=== PATIENT | female | born 1985 | race Caucasian/White ===

== ENCOUNTER 2017-10-08 01:03 | Inpatient (IN) | payer BC ==
[~2017-10-08] VITALS: Ht 170.2 cm; Wt 118.0 kg
[2017-10-08] VITALS (16 sets, daily range): BP systolic 121–143; BP diastolic 73–94
[~2017-10-08 01:03] MED LIST: CITA20TA19 PO; LISI-644 PO
[2017-10-08] MEDS ORDERED: ondansetron/PF 4mg/2ml inj IV ONE (01:40)
[2017-10-08] MEDS ORDERED: normal saline 1000ML IV soln IVB ONE (01:40)
[2017-10-08] MEDS ORDERED: morphine 4 MG/ML inj SYRINge IV ONE ×2 (01:40→04:00)
[2017-10-08 01:53] LABS: PROTHROMBIN TIME 10.2 SECONDS (9.0-12.0)
[2017-10-08 01:58] LABS: BASOPHILS % (AUTO) 0.4 % (0-1); EOSINOPHILS # (AUTO) 0.4 X10'3 (0-0.9); EOSINOPHILS % (AUTO) 3.6 % (0-6); HEMATOCRIT 39.7 % (35.0-45.0); HEMOGLOBIN 13.6 g/dl (12.0-16.0); LYMPHOCYTES # (AUTO) 3.2 X10'3 (1.1-4.8); MEAN CORPUSCULAR HEMOGLOBIN 27.1 PG (27.0-31.0); MEAN CORPUSCULAR HGB CONC 34.2 % (33.0-36.5); MEAN CORPUSCULAR VOLUME 79.3 FL (78-98); MEAN PLATELET VOLUME 7.9 FL (7.4-10.4); MONOCYTES # (AUTO) 0.6 X10'3 (0-0.9); MONOCYTES % (AUTO) 5.2 % (2-12); NEUTROPHILS # (AUTO) 7.1 X10'3 (1.8-7.7); NEUTROPHILS % (AUTO) 62.8 % (42-75); PLATELET COUNT 268 X10'3 (140-440); RED BLOOD COUNT 5.01 X10'6 (4.20-5.60); RED CELL DISTRIBUTION WIDTH 13.8 % (11.5-14.5); WHITE BLOOD COUNT 11.3 X10'3 (4.5-11.0)
[2017-10-08 02:02] LABS: ALANINE AMINOTRANSFERASE 43 U/L (12-78); ALBUMIN/GLOBULIN RATIO 1.1 (1.1-1.5); ALKALINE PHOSPHATASE 64 IU/L (46-116); ANION GAP 11 (8-16); ASPARTATE AMINO TRANSFERASE 27 U/L (10-37); BILIRUBIN,TOTAL 0.5 MG/DL (0.1-1.0); BLOOD UREA NITROGEN 10 MG/DL (7-18); BUN/CREATININE RATIO 11.4 (6.6-38.0); CALCIUM 8.9 MG/DL (8.5-10.1); CHLORIDE 102 MMOL/L (99-107); CREATININE 0.88 MG/DL (0.40-0.90); GLUCOSE 106 MG/DL (70-104); POTASSIUM 3.3 MMOL/L (3.5-5.1); SODIUM 141 MMOL/L (135-145); TOTAL PROTEIN 7.8 G/DL (6.4-8.2); eGFR 74 ML/MIN
[2017-10-08 02:26] LABS: LIPASE 156 U/L (73-393)
[2017-10-08 02:45] LABS: HCG SERUM QL NEGATIVE
[2017-10-08 03:10] LABS: CLARITY,URINE CLEAR (Clear); COLOR,URINE YELLOW (Yellow); GLUCOSE, URINE NEGATIVE (Neg); KETONES,URINE NEGATIVE (Neg); LEUKOCYTE ESTERASE ,URINE NEGATIVE (Neg); NITRITES, URINE NEGATIVE (Neg); OCCULT BLOOD,URINE SMALL (Neg); PH,URINE 5.5 (4.8-8.0); PROTEIN,URINE NEGATIVE (Neg); UROBILINOGEN,URINE 0.2 E.U/dL (0.2-1.0)
[2017-10-08 03:17] LABS: BACTERIA,URINE NONE SEEN /HPF (Neg); UA COLLECTION TYPE CLN CATCH MIDSTREAM; WBC,URINE NONE SEEN /HPF (0-4)
[2017-10-08 03:18] LABS: SQUAMOUS EPITHELIAL CELL,UR FEW /LPF (FEW)
[2017-10-08] MEDS ORDERED: potassium Cl 20 mEq SR tablet PO ONE (03:30)
[2017-10-08] MEDS ORDERED: ondansetron/PF 4mg/2ml inj IV PRN ×2 (05:40→16:50)
[2017-10-08] MEDS ORDERED: amLODIPine 5mg tablet PO ONE (05:45)
[2017-10-08] MEDS ORDERED: CADD PCA waste documentation MC PRN (05:45)
[2017-10-08] MEDS ORDERED: naloxone 0.4 mg/ml inj IV PRN (05:45)
[2017-10-08] MEDS ORDERED: LOSA25TA96 PO (06:12)
[2017-10-08] MEDS: normal saline 1000ml 1,000 ML IV SCH ×2 (06:17→16:10)
[2017-10-08] MEDS: morphine/NS 5 mg/ml CADD 50 ML IV SCH ×3 (09:19→21:30)
[2017-10-08] MEDS ORDERED: ringers solution, lacted 1,000 ML IV SCH (16:49)
[2017-10-08] MEDS ORDERED: morphine 4 MG/ML inj SYRINge IV PRN ×2 (16:50)
[2017-10-08] MEDS ORDERED: proCHLORperazine 10 MG/2 ml inj IV PRN (16:50)
[2017-10-08] MEDS ORDERED: meperidine/PF 50mg/ml syringe IV PRN ×3 (16:50)
[2017-10-08] MEDS ORDERED: midazolam 2 mg/2 ml injection ONE (17:07)
[2017-10-08] MEDS ORDERED: fentaNYL/PF 50MCG/1 ML 2ML syringe ONE ×2 (17:07→17:47)
[2017-10-08] MEDS ORDERED: sevoflurane 250ml liquid IH ONE (17:07)
[2017-10-08] MEDS ORDERED: ceFAZolin 1000mg inj ONE (17:17)
[2017-10-08] MEDS ORDERED: dexamethasone sod phosphate 4mg/ml inj. ONE (17:21)
[2017-10-08] MEDS ORDERED: LIDOcaine 2% (20mg/ml) 5ml vial ONE (17:21)
[2017-10-08] MEDS ORDERED: propofol inj 20 ML IV ONE (17:21)
[2017-10-08] MEDS ORDERED: rocuronium 10mg/ml inj IV ONE (17:21)
[2017-10-08] MEDS ORDERED: neostigmine methylsulfate 1 MG/ML 10ml vial ONE (18:04)
[2017-10-08] MEDS ORDERED: glycopyrrolate 0.2mg/ml inj ONE (18:04)
[2017-10-08] MEDS ORDERED: ondansetron/PF 4mg/2ml inj ONE (18:04)
[2017-10-08] MEDS: MORPHINE CADD 5 MG/ML 50ML IV SCH (23:00)
[2017-10-09] VITALS: BP 132/76
[2017-10-09] MEDS: MORPHINE CADD 5 MG/ML 50ML IV SCH ×4 (01:00→07:00)
[2017-10-09] MEDS: normal saline 1000ml 1,000 ML IV SCH (04:21)
[2017-10-09 08:00] VITALS: BP 128/86
[2017-10-09] MEDS ORDERED: TRAM50TA2 PO (13:30)
[2017-10-09] MEDS ORDERED: CIPR-259 PO (14:58)
== END 2017-10-09 15:30 | disposition home or self-care (01) | DRG 669 ==
LOC: ER 01:04 → ED HOLD 05:38 → SUR 3N 12:42
PROVIDERS: ADMIT Internal Medicine; ATTEND Internal Medicine
PROC: 0T778DZ Dilation of Left Ureter with Intraluminal Device, Via Natural or Artificial Opening Endoscopic (ICD-10-PCS; 2017-10-08)
PROC: 0TC78ZZ Extirpation of Matter from Left Ureter, Via Natural or Artificial Opening Endoscopic (ICD-10-PCS; principal; 2017-10-08 17:07)
DX: N20.2 Calculus of kidney with calculus of ureter (principal); Z68.41 Body mass index [BMI] 40.0-44.9, adult; E28.2 Polycystic ovarian syndrome; I10 Essential (primary) hypertension; F10.10 Alcohol abuse, uncomplicated; F32.9 Major depressive disorder, single episode, unspecified; F41.9 Anxiety disorder, unspecified; Z88.8 Allergy status to other drugs, medicaments and biological substances; Z79.01 Long term (current) use of anticoagulants; Z79.899 Other long term (current) drug therapy; Z87.440 Personal history of urinary (tract) infections
CPT/HCPCS: 96361; 96374; 96375; 96376; 99285; Z7506; 36415; 74176; 76000; 80053; 81001; 83690; 84703; 85025; 85610; 85730; 87070; A4402; C1769; C2617; J0690; J1100; J2001; J2250; J2270; J2405; J2704; J2710; J3010; J3490; J7030; J7120

== ENCOUNTER 2019-10-02 12:54 | Emergency (ER) | payer BC, OTHER ==
[~2019-10-02] VITALS: Ht 162.6 cm; Wt 117.5 kg
[~2019-10-02 12:54] MED LIST changes: +CIPR-259 PO; -CITA20TA19 PO; -LISI-644 PO; +LOSA25TA96 PO
[2019-10-02 13:09] VITALS: BP 146/90
[2019-10-02] MEDS ORDERED: CYCL-1 PO (14:22)
== END 2019-10-02 14:45 | disposition home or self-care (01) ==
LOC: ER 12:55
DX: M54.2 Cervicalgia (principal); M25.512 Pain in left shoulder; I10 Essential (primary) hypertension; F41.9 Anxiety disorder, unspecified; F32.9 Major depressive disorder, single episode, unspecified; Z88.1 Allergy status to other antibiotic agents; Z72.89 Other problems related to lifestyle; Z79.899 Other long term (current) drug therapy
CPT/HCPCS: 99283

== ENCOUNTER 2020-02-12 07:47 | Emergency (ER) | payer BC, OTHER ==
[~2020-02-12] VITALS: Ht 170.2 cm; Wt 120.4 kg
[~2020-02-12 07:47] MED LIST changes: +CYCL-1 PO
--- NOTE | 2020-02-12 08:08 | NUR ---
discussed pt's nausea with dion muro;new order for zofran 4mg iv.
[2020-02-12] MEDS ORDERED: ondansetron/PF 4mg/2ml inj IV ONE (08:10)
[2020-02-12 08:14] LABS: BASOPHILS % (AUTO) 0.7 % (0-1); EOSINOPHILS # (AUTO) 0.2 X10'3 (0-0.9); EOSINOPHILS % (AUTO) 3.4 % (0-6); HEMATOCRIT 39.2 % (35.0-45.0); HEMOGLOBIN 12.4 g/dl (12.0-16.0); LYMPHOCYTES % (AUTO) 33.6 % (21-51); MEAN CORPUSCULAR HEMOGLOBIN 22.5 PG (27.0-31.0); MEAN CORPUSCULAR HGB CONC 31.7 g/dL (33.0-36.5); MEAN CORPUSCULAR VOLUME 70.9 FL (78-98); MEAN PLATELET VOLUME 7.5 FL (7.4-10.4); MONOCYTES # (AUTO) 0.3 X10'3 (0-0.9); MONOCYTES % (AUTO) 4.1 % (2-12); NEUTROPHILS # (AUTO) 3.5 X10'3 (1.8-7.7); NEUTROPHILS % (AUTO) 58.2 % (42-75); PLATELET COUNT 284 X10'3 (140-440); RED BLOOD COUNT 5.52 X10'6 (4.20-5.60); RED CELL DISTRIBUTION WIDTH 17.2 % (11.5-14.5); WHITE BLOOD COUNT 6.1 X10'3 (4.5-11.0)
[2020-02-12 08:30] LABS: ALANINE AMINOTRANSFERASE 23 U/L (12-78); ALBUMIN 3.7 G/DL (3.4-5.0); ALKALINE PHOSPHATASE 66 IU/L (46-116); ANION GAP 6 (8-16); ASPARTATE AMINO TRANSFERASE 11 U/L (10-37); BILIRUBIN,TOTAL 0.2 MG/DL (0.1-1.0); BLOOD UREA NITROGEN 10 MG/DL (7-18); BUN/CREATININE RATIO 10.8 (6.6-38.0); CALCIUM 8.5 MG/DL (8.5-10.1); CHLORIDE 106 MMOL/L (99-107); CREATININE 0.93 MG/DL (0.40-0.90); GLUCOSE 163 MG/DL (70-104); POTASSIUM 3.7 MMOL/L (3.5-5.1); SODIUM 140 MMOL/L (135-145); TOTAL CARBON DIOXIDE 28.5 MMOL/L (24-32); TOTAL PROTEIN 7.3 G/DL (6.4-8.2); eGFR 69 ML/MIN
[2020-02-12 08:34] LABS: MAGNESIUM 1.9 MG/DL (1.5-2.4)
[2020-02-12 09:34] LABS: D-DIMER < 0.19 MG/L FEU (0-0.50)
[2020-02-12 12:36] VITALS: BP 118/90
== END 2020-02-12 12:38 | disposition home or self-care (01) ==
LOC: ER 07:48
DX: I10 Essential (primary) hypertension (principal); R07.9 Chest pain, unspecified; R11.0 Nausea; F41.9 Anxiety disorder, unspecified; F32.9 Major depressive disorder, single episode, unspecified; Z72.89 Other problems related to lifestyle; Z88.1 Allergy status to other antibiotic agents; Z79.2 Long term (current) use of antibiotics; Z79.899 Other long term (current) drug therapy
CPT/HCPCS: 36415; 71045; 80053; 83735; 83880; 84484; 85025; 85379; 93005; 96374; 99285; J2405